=== PATIENT | male | born 2000 | race Caucasian/White ===

== ENCOUNTER 2024-10-10 13:17 | Emergency (ER) | payer OTHER, SELFPAY ==
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
[2024-10-10 13:35] VITALS: BP 142/79; PULSE 76; RESP 16; TEMP 36.8; O2SAT 100
[2024-10-10] MEDS: IBUPROFEN 400 MG TABLET 800 MG PO (14:11)
== END 2024-10-10 15:39 | disposition home or self-care (01) ==
PROVIDERS: Emergency Provider Nurse Practitioner Family
DX: M54.50 Low back pain, unspecified (principal); M25.562 Pain in left knee; M25.561 Pain in right knee; V43.62XA Car passenger injured in collision with other type car in traffic accident, initial encounter
CPT/HCPCS: 72040; 72100; 73521; 73562; 73564; 99204; A9270; G0463